=== PATIENT | female | born 1970 | race African-American/Black ===

== ENCOUNTER 2019-03-22 13:01 | Emergency (ER) | payer OTHER ==
[~2019-03-22] VITALS: Ht 157.5 cm; Wt 65.8 kg
[~2019-03-22 13:01] MED LIST: FLEXERIL PO; KLONOPIN1 MG PO; NAPROSYN500 MG PO; NORCO 5-325 TA1 EACH PO; NORFLEX100 MG; VENLAFAXIN37.5 MG/1 PER TUBE
[2019-03-22 13:02] VITALS: BP 127/79
== END 2019-03-22 14:07 | disposition left against medical advice (07) ==
LOC: ER 13:01
DX: Z53.21 Procedure and treatment not carried out due to patient leaving prior to being seen by health care provider (principal); M54.9 Dorsalgia, unspecified

== ENCOUNTER 2019-05-27 09:38 | Emergency (ER) | payer OTHER ==
[~2019-05-27] VITALS: Ht 157.5 cm; Wt 66.7 kg
[2019-05-27] MEDS ORDERED: APAP650 PO (11:35)
[2019-05-27] MEDS ORDERED: FLEXERIL PO (11:35)
[2019-05-27 11:40] VITALS: BP 111/76
== END 2019-05-27 11:40 | disposition home or self-care (01) ==
LOC: ER 09:38
DX: M54.5 Low back pain (principal); G89.29 Other chronic pain; F41.9 Anxiety disorder, unspecified; Z88.8 Allergy status to other drugs, medicaments and biological substances; Z88.0 Allergy status to penicillin